=== PATIENT | male | born 1950 | race Caucasian/White ===

== ENCOUNTER 2019-01-13 21:40 | Observation (INO) | payer MEDICARE ==
[~2019-01-13] VITALS: Ht 182.9 cm; Wt 93.4 kg
[2019-01-13] MEDS: ATENOLOL 25 MG TAB PO SCH (21:00)
[2019-01-13 22:33] LABS: BASO # 0.1 10^3/uL (0.0-0.2); BASO % 1.1 % (0.0-1.0); EOS # 0.1 10^3/uL (0.0-0.50); HEMATOCRIT 48.1 % (42.0-52.0); HEMOGLOBIN 16.4 g/dl (13.5-17.5); LYMPH # 2.9 10^3/uL (1.5-4.5); LYMPH % 41.3 % (24.0-44.0); MEAN CORPUSCULAR HGB CONC 34.1 g/dl (32.0-36.5); MEAN CORPUSCULAR VOLUME 88.1 fl (80.0-96.0); MONO # 0.6 10^3/uL (0.0-0.8); MONO % 8.9 % (0.0-5.0); NEUTROPHILS # 3.3 10^3/uL (1.8-7.7); NEUTROPHILS % 46.4 % (36.0-66.0); PLATELET COUNT, AUTOMATED 238 10^3/uL (150-450); RED BLOOD COUNT 5.46 10^6/uL (4.30-6.10); WHITE BLOOD COUNT 7.1 10^3/uL (4.0-10.0)
[2019-01-13 23:07] LABS: ALT/SGPT 18 U/L (12-78); BILIRUBIN,DIRECT 0.2 MG/DL (0.0-0.2); BILIRUBIN,TOTAL 0.5 MG/DL (0.2-1.0); BLOOD UREA NITROGEN 15 MG/DL (7-18); CALCIUM LEVEL 9.1 MG/DL (8.8-10.2); CARBON DIOXIDE LEVEL 25 MEQ/L (21-32); CHLORIDE LEVEL 110 MEQ/L (98-107); CK-MB VALUE MASS 1.8 NG/ML (<3.6); CPK CREATINE PHOSPHOKINASE 135 U/L (39-308); CREATININE FOR GFR 1.48 MG/DL (0.70-1.30); GLOMERULAR FILTRATION RATE 50.5 (>49); GLUCOSE, FASTING 128 MG/DL (70-100); MB/CK RELATIVE INDEX 1.33 (< OR =4); POTASSIUM SERUM 3.7 MEQ/L (3.5-5.1); SODIUM LEVEL 143 MEQ/L (136-145); TROPONIN I < 0.02 NG/ML (< 0.10)
--- NOTE | 2019-01-13 23:37 | REPVR ---
EXAM: CT Head Without Contrast EXAM DATE/TIME: 01/13/2019 10:56 PM CLINICAL HISTORY: 68 years old, male; Visual disturbance; Additional info: Altered mental status TECHNIQUE: Imaging protocol: Computed tomography images of the head without contrast. Radiation optimization: All CT scans at this facility use at least one of these dose optimization techniques: automated exposure control; mA and/or kV adjustment per patient size (includes targeted exams where dose is matched to clinical indication); or iterative reconstruction. COMPARISON: No relevant prior studies available. FINDINGS: Brain: Global cerebral atrophy is consistent with patient's age. Decreased attenuation within the white matter tracts of both cerebral hemispheres is nonspecific but typically seen with small vessel disease/chronic white matter ischemic changes of aging. No intracranial hemorrhage or mass effect. Prominent cisterna magna variant. Ventricles: Unremarkable. No ventriculomegaly. Bones/joints: Unremarkable. No acute fracture. Sinuses: Visualized sinuses are unremarkable. No fluid levels. Mastoid air cells: Visualized mastoid air cells are well aerated. No mastoid effusion. Soft tissues: Unremarkable. IMPRESSION: No acute abnormality. Electronically signed by: Mike Matamoros On 01/13/2019 23:36:44 PM
[2019-01-14] MEDS ORDERED: ASPIRIN 325 MG TAB PO ONE (02:45)
[2019-01-14] MEDS ORDERED: D-10TAB2 PO (03:06)
[2019-01-14] MEDS ORDERED: FENO48TA2 PO (03:06)
[2019-01-14] MEDS ORDERED: SIMV40TA2 PO (03:06)
[2019-01-14] MEDS ORDERED: ATEN25TA PO (03:06)
--- NOTE | 2019-01-14 03:23 | HPEPDOC ---
[facility] Medical History & Physical Date of Admission Jan 14, 2019 Date of Service: Jan 14, 2019 Attending Physician: JULIO SCTOT MD History and Physical TIME OF SERVICE 330AM CHIEF COMPLAINT: Memory lapse HISTORY OF PRESENT ILLNESS: Mr. Gurrola is a 68-year-old male who was brought to the ED by his after having an episode of "ocular migraine that was more "intense than usual ". He reports that his ocular migraines usually involve either the left, the right, both eyes, and manifest with blurring vision the results shortly thereafter. He denies having associated headaches, denies having associated dizziness, and denies having tearing of the eye or stabbing sensation in the eye. When asked to describe what he meant when he sate his ocular headache was "more intense than usual ", he reported having new onset memory loss, and vision loss that was longer than usual. He and his denies noticing changes in his speech. Per discussion with the ED attending, the CT of the head and the EKG were unremarkable REVIEW OF SYSTEMS: 12 point review of systems negative except as listed in HPI PAST MEDICAL /SURGICAL HISTORY: 1. Ocular migraine 2.Chronic hypertension. 3. Dyslipidemia. 4. History of CO SOCIAL HISTORY: Denies alcohol use. Denies tobacco abuse. Denies polysubstance abuse FAMILY HISTORY: Morbid obesity. CVA. Coronary artery disease. Diabetes Hypertension ALLERGIES: Please see below. HOME MEDICATIONS: Please see below. PHYSICAL EXAMINATION: VITAL SIGNS: Temperature 98.7, pulse 90, respiratory rate 18, blood pressure 130/69, pulse oximetry 95% on room air GENERAL APPEARANCE: Well-nourished, well-developed, appears stated age, not in apparent distress HEENT: Normocephalic, atraumatic, mucous members moist and pink, is missing some teeth CARDIOVASCULAR: Heart has regular rate and rhythm, there are no murmurs, rubs or gallops, LUNGS: He is breathing normally and not using accessory muscles. The lungs are clear to auscultation bilaterally on room air ABDOMEN: Abdomen is soft, flat, nontender. Palpation MUSCULOSKELETAL: . Range of motion is intact in all functional in all extremities, EXTREMITIES: there is no lower extremity edema NEUROLOGICAL: . Cranial nerves II-12 grossly intact, speech is not dysarthric, strength is 5 out of 5 in both upper and lower extremities, patellar reflexes are 2+ bilaterally PSYCHIATRIC: Alert and oriented to person, place, but not date, is able to understand and follow commands LABORATORY DATA: CBC is unremarkable History is remarkable for a creatinine of 1.48 and a glucose of 128 IMAGING: CT of the head showed "small vessel disease/chronic white matter ischemic changes of aging" but no acute abnormalties. MICROBIOLOGY: Please see below. ASSESSMENT: Mr. Gurrola is a 68-year-old male with a past medical history of hypertension, dyslipidemia, and chronic coronary artery disease will be admitted for evaluation of memory loss. . PLAN: 1.AMS/ Retrograde Amnesia Cause TBD Plan: admit to F / frequent neurochecks / f/u accucheck, CBC, B12, B1, CMP, ammonia, Mag, Phos, TSH, RPR / f/u MRI of brain w contrast to r/o mass and Carotid US to r/o embolic phenomenon / pending results the day time can determine if Neuro consult is warranted 2. Ocular migraines. manifesting w vision loss Plan: Acetaminophen PRN / out pt vs in pt Neuro consult per day time team 3. Mild renal insufficiency Plan: IV fluids, follow-up BMP in the morning. 4. Chronic hypertension. Plan;continue home meds. 5. Dyslipidemia. Plan: Continue home meds. 6. Chronic CAD Plan: continue home meds DVT px w SCDs Dispo pending clinical course Vital Signs Vital Signs Date Time Temp Pulse Resp B/P (MAP) Pulse Ox O2 Delivery O2 Flow Rate FiO2 01/14/19 00:00 130/69 (89) 01/13/19 23:55 90 95 01/13/19 21:50 98.7 18 Room Air Laboratory Data Labs 24H Laboratory Tests 2 01/13/19 22:20: Immature Granulocyte % (Auto) 0.3, White Blood Count 7.1, Red Blood Count 5.46, Hemoglobin 16.4, Hematocrit 48.1, Mean Corpuscular Volume 88.1, Mean Corpuscular Hemoglobin 30.0, Mean Corpuscular Hemoglobin Concent 34.1, Red Cell Distribution Width 13.1, Platelet Count 238, Neutrophils (%) (Auto) 46.4, Lymphocytes (%) (Auto) 41.3, Monocytes (%) (Auto) 8.9H, Eosinophils (%) (Auto) 2.0, Basophils (%) (Auto) 1.1H, Neutrophils # (Auto) 3.3, Lymphocytes # (Auto) 2.9, Monocytes # (Auto) 0.6, Eosinophils # (Auto) 0.1, Basophils # (Auto) 0.1, Nucleated Red Blood Cells % (auto) 0.0, Anion Gap 8, Glomerular Filtration Rate 50.5, Calcium Level 9.1, Aspartate Amino Transf (AST/SGOT) 18, Alanine Aminotransferase (ALT/SGPT) 18, Alkaline Phosphatase 26L, Total Bilirubin 0.5, Direct Bilirubin 0.2, Total Creatine Kinase 135, Creatine Kinase MB 1.8, Creatine Kinase MB Relative Index 1.33, Troponin I < 0.02, Total Protein 7.0, Albumin 4.0, Albumin/Globulin Ratio 1.33, Thyroid Stimulating Hormone (TSH) 1.990 01/13/19 22:33: Bedside Glucose (Misc Panel) 120H 01/14/19 01:55: Urine Color YELLOW, Urine Appearance CLEAR, Urine pH 6.0, Urine Specific [place] 1.010, Urine Protein NEGATIVE, Urine Glucose (UA) NEGATIVE, Urine Ketones NEGATIVE, Urine Blood 1+H, Urine Nitrite NEGATIVE, Urine Bilirubin NEGATIVE, Urine Urobilinogen 0.2, Urine Leukocyte Esterase NEGATIVE, Urine WBC (Auto) 1, Urine RBC (Auto) 2, Urine Hyaline Casts (Auto) 0, Urine Bacteria (Auto) NEGATIVE, Urine Squamous Epithelial Cells 0, Urine Mucus (Auto) SMALL, Urine Sperm (Auto) CBC/BMP Laboratory Tests 01/13/19 22:20 Red Blood Count 5.46, Mean Corpuscular Volume 88.1, Mean Corpuscular Hemoglobin 30.0, Mean Corpuscular Hemoglobin Concent 34.1, Red Cell Distribution Width 13.1, Neutrophils (%) (Auto) 46.4, Lymphocytes (%) (Auto) 41.3, Monocytes (%) (Auto) 8.9 H, Eosinophils (%) (Auto) 2.0, Basophils (%) (Auto) 1.1 H, Neutrophils # (Auto) 3.3, Lymphocytes # (Auto) 2.9, Monocytes # (Auto) 0.6, Eosinophils # (Auto) 0.1, Basophils # (Auto) 0.1 Home Medications Scheduled Atenolol (Atenolol) 25 Mg Tablet, 25 MG PO QHS Cholecalciferol (Vitamin D3) (Vitamin D3) 1,000 Unit Tablet, 1,000 UNIT PO QHS Fenofibrate Nanocrystallized (Fenofibrate) 48 Mg Tablet, 48 MG PO QHS Simvastatin (Simvastatin) 40 Mg Tablet, 40 MG PO Q2D ALTERNATES BETWEEN 40MG AND 60MG EVERY OTHER DAY Simvastatin (Simvastatin) 40 Mg Tablet, 60 MG PO Q2D ALTERNATES BETWEEN 40MG AND 60MG EVERY OTHER DAY Allergies Coded Allergies: Iodinated Contrast- Oral and IV Dye (Verified Allergy, Unknown, 01/13/19) A-FIB/CHADSVASC A-FIB History Current/History of A-Fib/PAF?: No Current PO Anticoag Therapy: No JULIO SCOTT MD Jan 14, 2019 03:23
[2019-01-14] MEDS ORDERED: ACETAMINOPHEN 500 MG TAB PO PRN (04:30)
[2019-01-14] MEDS: NS 1,000 ML IV SCH ×2 (04:43→12:30)
--- NOTE | 2019-01-14 05:47 | ECGEPIP ---
[facility] - ED Test Date: 2019-01-13 Pat Name: JANEY NUNEZ Department: Room: - Gender: Male [employer]: KCJ : 1950 Requested By: LANA NIETO Order Number: [id number] Reading MD: Lambert Day Measurements Intervals [place] Rate: 92 P: 40 AK: 168 QRS: -36 QRSD: 97 T: 11 QT: 365 QTc: 453 Interpretive Statements SINUS RHYTHM WITH OCCASIONAL VENTRICULAR PREMATURE COMPLEXES PATTERN CONSISTENT WITH PULMONARY DISEASE INCOMPLETE RIGHT BUNDLE BRANCH BLOCK INFERIOR MYOCARDIAL INFARCTION, PROBABLY OLD WITH POSTERIOR EXTENSION NO PRIORS FOR COMPARISON Electronically Signed on 01-14-2019 5:47:48 EDT by Lambert Day
[2019-01-14 07:24] LABS: BASO # 0.1 10^3/uL (0.0-0.2); BASO % 0.9 % (0.0-1.0); EOS # 0.1 10^3/uL (0.0-0.50); EOS % 0.9 % (0.0-3.0); HEMATOCRIT 46.8 % (42.0-52.0); HEMOGLOBIN 15.8 g/dl (13.5-17.5); LYMPH # 1.7 10^3/uL (1.5-4.5); LYMPH % 25.4 % (24.0-44.0); MEAN CORPUSCULAR HEMOGLOBIN 29.9 pg (27.0-33.0); MEAN CORPUSCULAR HGB CONC 33.8 g/dl (32.0-36.5); MEAN CORPUSCULAR VOLUME 88.5 fl (80.0-96.0); MONO # 0.5 10^3/uL (0.0-0.8); NEUTROPHILS # 4.2 10^3/uL (1.8-7.7); NEUTROPHILS % 64.5 % (36.0-66.0); PLATELET COUNT, AUTOMATED 238 10^3/uL (150-450); RED BLOOD COUNT 5.29 10^6/uL (4.30-6.10); WHITE BLOOD COUNT 6.5 10^3/uL (4.0-10.0)
[2019-01-14 07:34] LABS: BLOOD UREA NITROGEN 12 MG/DL (7-18); CALCIUM LEVEL 9.2 MG/DL (8.8-10.2); CARBON DIOXIDE LEVEL 26 MEQ/L (21-32); CHLORIDE LEVEL 111 MEQ/L (98-107); CREATININE FOR GFR 1.39 MG/DL (0.70-1.30); GLOMERULAR FILTRATION RATE 54.3 (>49); GLUCOSE, FASTING 119 MG/DL (70-100); POTASSIUM SERUM 3.7 MEQ/L (3.5-5.1); SODIUM LEVEL 145 MEQ/L (136-145)
[2019-01-14 07:43] VITALS: BP 136/75
[2019-01-14 10:05] LABS: VITAMIN B12 LEVEL 218 PG/ML (247-911)
--- NOTE | 2019-01-14 11:13 | REP ---
CAROTID ULTRASOUND: Real-time ultrasound evaluation and duplex Doppler interrogation of the extracranial carotid vasculature is performed. There is mild plaquing and narrowing in both carotid bulbs extending into the internal and external carotid arteries. Luminal narrowing is less than 50%. There is no evidence of hemodynamically significant stenosis of either internal carotid artery. Normal flow velocities are seen. The vertebral arteries demonstrate normal direction of flow. RIGHT LEFT Peak systolic velocity ICA 57.8 cm/s 59.8 cm/s End diastolic velocity ICA 15.4 cm/s 19.4 cm/s Peak systolic velocity CCA 127.8 cm/s 86.9 cm/s Peak systolic velocity ECA 89.7 cm/s 90.2 cm/s ICA/CCA ratio 0.45 0.74 IMPRESSION: Bilateral luminal narrowing of the internal carotid arteries less than 50%. No evidence of hemodynamically significant stenosis. Electronically Signed by Frantz Andrews MD 01/14/2019 11:04 A
[2019-01-14 14:00] VITALS: BP 161/84
--- NOTE | 2019-01-14 19:15 | REP ---
MR BRAIN WITHOUT CONTRAST: HISTORY: Altered mental status. COMPARISON: CT 01/13/2019 An area of increased signal intensity on diffusion and T2 weighted images is present in the inferomedial left temporal lobe and left occipital lobe. This is decreased in signal intensity on ADC images and is consistent with an acute infarction. Areas of increased signal intensity on T2 weighted images are present in the cerebellum. These represent old lacunar infarctions. Areas of increased signal on T2 weighted images are present in the periventricular and subcortical white matter. This represents small vessel ischemic disease. There is no intraparenchymal hemorrhage, mass or midline shift. The ventricular system and cortical sulci are dilated consistent with mild volume loss. There is no extracerebral collection. The sinuses are clear. IMPRESSION:1. Acute left temporal and occipital lobe infarction. There is no hemorrhage. 2. Old bilateral cerebellar lacunar infarctions. 3. Small vessel ischemic disease. 4. Mild volume loss. Electronically Signed by Noam Silva MD 01/15/2019 08:18 A
[2019-01-14] MEDS ORDERED: SIMVASTATIN 40 MG TAB PO SCH (21:00)
--- NOTE | 2019-01-14 21:03 | REPVR ---
EXAM: MR Angiogram Head Without Contrast, Arteries EXAM DATE/TIME: 01/14/2019 8:25 PM CLINICAL HISTORY: 68 years old, male; Headache and weakness; Additional info: CVA TECHNIQUE: Imaging protocol: MR angiogram head without contrast. Exam focused on the arteries. COMPARISON: MRI-Brain without Contrast 01/14/2019 2:56 PM FINDINGS: Right internal carotid artery: Unremarkable. Intracranial segment is patent with no significant stenosis. No aneurysm. Right anterior cerebral artery: Absent right A1 segment of the anterior cerebral artery. Right middle cerebral artery: Unremarkable. No occlusion or significant stenosis. No aneurysm. Right posterior cerebral artery: Unremarkable. No occlusion or significant stenosis. No aneurysm. Right vertebral artery: Unremarkable. No occlusion or significant stenosis. No aneurysm. Left internal carotid artery: Unremarkable. Intracranial segment is patent with no significant stenosis. No aneurysm. Left anterior cerebral artery: Unremarkable. No occlusion or significant stenosis. No aneurysm. Left middle cerebral artery: Unremarkable. No occlusion or significant stenosis. No aneurysm. Left posterior cerebral artery: Nonvisualized left calcarine branch (P3-P5 segments) of the posterior cerebral artery indicating occlusion. Left vertebral artery: Unremarkable. No occlusion or significant stenosis. No aneurysm. Basilar artery: Unremarkable. No occlusion or significant stenosis. No aneurysm. IMPRESSION: 1. 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 2. Nonvisualized distal left calcarine branch (P3-P5 segments) of the posterior cerebral artery indicating occlusion. Electronically signed by: Gibran Jeong On 01/14/2019 21:03:12 PM
[2019-01-14] MEDS: ASPIRIN 325 MG TAB PO SCH (21:47)
[2019-01-14] MEDS: FENOFIBRATE 48 MG TAB (TRICOR) PO SCH (21:47)
[2019-01-14] MEDS: ATENOLOL 25 MG TAB PO SCH (21:49)
[2019-01-14] MEDS: CYANOCOBALAMIN 1,000 MCG/ML VIAL (J3420) IM SCH (21:50)
[2019-01-14 22:00] VITALS: BP 164/72
[2019-01-15 06:00] VITALS: BP 132/76
[2019-01-15 06:21] LABS: HEMATOCRIT 44.3 % (42.0-52.0); HEMOGLOBIN 15.2 g/dl (13.5-17.5); MEAN CORPUSCULAR HEMOGLOBIN 29.6 pg (27.0-33.0); MEAN CORPUSCULAR HGB CONC 34.3 g/dl (32.0-36.5); MEAN CORPUSCULAR VOLUME 86.4 fl (80.0-96.0); PLATELET COUNT, AUTOMATED 222 10^3/uL (150-450); RED BLOOD COUNT 5.13 10^6/uL (4.30-6.10)
[2019-01-15 06:49] LABS: CHOLESTEROL RISK RATIO 2.607 (<5); CREATININE FOR GFR 1.37 MG/DL (0.70-1.30); GLOMERULAR FILTRATION RATE 55.2 (>49); POTASSIUM SERUM 3.6 MEQ/L (3.5-5.1)
[2019-01-15] MEDS: ASPIRIN 325 MG TAB PO SCH (08:53)
--- NOTE | 2019-01-15 09:02 | CR ---
DATE OF CONSULTATION: 01/14/2019 REFERRING PHYSICIAN: Rajan Harley MD REASON FOR CONSULTATION: Memory lapse and right-sided vision problems. HISTORY OF PRESENT ILLNESS: Jeremias Gurrola is a 68-year-old man with history of ocular migraines. The patient states that he has history of ocular migraines for more than 30 years. His father also has ocular migraines. He states that he came to hospital because he had more intense ocular migraine and other symptoms, as well. He gets ocular migraines anywhere between two and three times a day for 1 week, and then he may not have anything for 6-12 months. He has not had ocular migraine in a year or more. Last night around 9:00 p.m. when he was going inside his [place] from his backyard where he was moving his motor home, he states that he suddenly could not see in both eyes which affected his right eye more than left eye. He also felt increased blind spot and flashes of lights. He felt double vision. He did not feel problems with his speech, imbalance, or dizziness. He went inside his cottage and told his . She decided to drive him to emergency department. On their way, he told his that they should call . Emergency medical services (EMS) brought him to [facility] Emergency Department. He came to Emergency Department by 10:00 p.m. in the ambulance. He denies any headaches with his ocular migraines or yesterday. He states that he repeated himself multiple times when he was in the ambulance. He had memory difficult this morning, especially with short-term memory. It is getting better. His vision and memory have improved in the last 24 hours. DIAGNOSTIC STUDIES: His MRI scan of brain was reviewed and showed a small-medium size medial posterior temporal lobe stroke affecting optic radiations. Carotid ultrasound showed less than 50% bilateral carotid artery stenosis. Electrocardiogram (EKG) and telemetry monitoring showed sinus rhythm. PAST MEDICAL HISTORY: Ocular migraine, hypertension, dyslipidemia, history of myocardial infarction ([place]). SOCIAL HISTORY: He is . He denies smoking, alcohol, or illicit drugs. FAMILY HISTORY: Father with history of ocular migraines. There is no history of diabetes, hypertension, and stroke in the family. REVIEW OF SYSTEMS: All systems were reviewed and found to be noncontributory except as mentioned in history of present illness. HOME MEDICATIONS: - simvastatin and he takes 40 alternating with 60 mg daily - fenofibrate 48 mg by mouth daily - vitamin D3 1000 units by mouth daily - atenolol 25 mg by mouth daily ALLERGIES: INTRAVENOUS AND ORAL CONTRAST DYE. PHYSICAL EXAMINATION: Blood pressure 161/84, pulse 88, respiratory rate 20, temperature 97.3, 96% saturation on room air. Heart: Regular rate and rhythm. Lungs: Clear to auscultation. Abdomen: Soft, nontender, nondistended. No pedal edema. No musculoskeletal abnormalities. No rash. No signs of meningeal irritation. No tremor. The patient is awake, alert, oriented to place, person, and time. Normal speech, comprehension, and repetition. Extraocular muscles are intact. No facial weakness. Tongue and uvula are midline. 5/5 strength in all four extremities. Deep tendon reflexes are 2+ throughout. Normal sensation throughout. No dysmetria or ataxia. Recent memory is slightly affected. The patient asked me the same question two or three times. He was able to correct himself, as well. Distant memory was completely normal. Visual tracey were full to confrontation on my examination at bedside. ASSESSMENT: 1. 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 2. History of ocular migraines. 3. Anterograde amnesia and visual disturbance related to above. 4. Dyslipidemia and hypertension. PLAN: 1. Aspirin 325 mg by mouth daily. 2. MRA brain. 3. We cannot do CT angiography of head and neck due to his CONTRAST ALLERGY. 4. Continue simvastatin 40 mg alternating with 60 mg daily. Will check fasting lipid profile. 5. Blood tests to rule out coagulopathy and vasculopathy. 6. Echocardiogram and continue telemetry monitoring. 7. Follow with our office in 2-4 weeks after hospital discharge. His carotid ultrasound showed less than 50% bilateral carotid stenosis. 8. Vitamin B12 1 mg intramuscular injection daily while he is in the hospital. Can be changed to 1000 mcg by mouth daily at the time of his discharge. His complete blood count (CBC) was within normal limits.
[2019-01-15] MEDS: NS 1,000 ML IV SCH (09:12)
[2019-01-15 12:27] LABS: HEMOGLOBIN A1c 6.1 %
--- NOTE | 2019-01-15 13:36 | IPNPDOC ---
Subjective Date Seen The patient was seen on 01/15/19. Subjective Chief Complaint/HPI Patient seen and examined at the bedside. Reports that his visual disturbance and memory has significantly improved compared to yesterday. Denies any new focal neurological deficits. Objective Physical Examination General Exam: Positive: Alert, Cooperative, No Acute Distress Eye Exam: Positive: PERRLA, Conjunctiva & lids normal, EOMI; Negative: Sclera icteric, Ptosis ENT Exam: Positive: Atraumatic, Mucous membr. moist/pink Neck Exam: Negative: JVD Chest Exam: Positive: Clear to auscultation, Normal air movement Heart Exam: Positive: Rate Normal, Normal S1, Normal S2 Abdomen Exam: Positive: Soft; Negative: Tenderness Extremity Exam: Negative: Tenderness, Swelling Neuro Exam: Positive: Normal Speech, Strength at 5/5 X4 ext, Normal Tone, Sensation Intact, Cranial Nerves 3-12 NL Psych Exam: Positive: Mental status NL, Mood NL, Oriented x 3 Assessment /Plan Plan/VTE VTE Prophylaxis Ordered?: Yes Plan Left Posterior Medial Temporal Lobe CVA Symptoms of Anterograde amnesia with visual disturbance has improved MRI Brain notable for Acute left temporal and occipital lobe infarction MRA Brain notable for Absent right A1 segment of the anterior cerebral artery and Nonvisualized distal left calcarine branch (P3-P5 segments) of the posterior cerebral artery indicating occlusion. U/S Carotids with Less than 50% stenosis noted 2D ECHO pending Neuro input appreciated; Cont ASA 325mg, Statin We will cont to monitor the patient on Telemetry Chronic Kidney Disease Stage III Serum Cr at baseline HTN Cont atenolol Dyslipidemia Cont Statin, Fenofibrate Pre-Diabetes HgbA1c noted to be 6.1%---Dietary and lifestyle modifications will be discussed DVT Prophylaxis OOB, Ambulation encouraged Dispo--pending continued clinical improvement, 2D ECHO. Anticipate D/C in the AM. VS, I&O, 24H, Fishbone Vital Signs/I&O Vital Signs Date Time Temp Pulse Resp B/P (MAP) Pulse Ox O2 Delivery O2 Flow Rate FiO2 01/15/19 06:00 97.0 16 19 132/76 (94) 99 01/13/19 21:50 Room Air I&O- Last 24 Hours up to 6 AM 01/15/19 06:00 Intake Total 2560 ml Output Total 200 ml Balance 2360 ml Laboratory Data 24H LABS Laboratory Tests 2 01/15/19 05:37: Nucleated Red Blood Cells % (auto) 0.0, Anion Gap 6L, Glomerular Filtration Rate 55.2, Calcium Level 9.0, Triglycerides Level 113, LDL Cholesterol 67, Total Cholesterol 146, Non-HDL Cholesterol (LDL + VLDL) 90, Total HDL Cholesterol 56, Cholesterol/HDL Ratio 2.607 01/15/19 11:28: Estimated Mean Plasma Glucose 128H, Hemoglobin A1c 6.1 CBC/BMP Laboratory Tests 01/15/19 05:37 Red Blood Count 5.13, Mean Corpuscular Volume 86.4, Mean Corpuscular Hemoglobin 29.6, Mean Corpuscular Hemoglobin Concent 34.3, Red Cell Distribution Width 13.2 MARY MAXWELL MD Jan 15, 2019 13:36
[2019-01-15 14:00] VITALS: BP 134/81
[2019-01-15] MEDS: CYANOCOBALAMIN 1,000 MCG/ML VIAL (J3420) IM SCH (15:29)
[2019-01-15] MEDS ORDERED: CYANOCOBALAMIN 1,000 MCG/ML VIAL (J3420) IM SCH (19:00)
[2019-01-15] MEDS ORDERED: SIMVASTATIN 20 MG TAB PO SCH (21:00)
[2019-01-15 21:07] VITALS: BP 121/71
[2019-01-15] MEDS: FENOFIBRATE 48 MG TAB (TRICOR) PO SCH (21:07)
[2019-01-15] MEDS: ATENOLOL 25 MG TAB PO SCH (21:07)
[2019-01-15 22:00] VITALS: BP 127/71
[2019-01-16] MEDS: NS 1,000 ML IV SCH (01:48)
[2019-01-16 06:00] VITALS: BP 140/73
[2019-01-16 08:46] LABS: CALCIUM LEVEL 9.1 MG/DL (8.8-10.2); CREATININE FOR GFR 1.34 MG/DL (0.70-1.30); GLOMERULAR FILTRATION RATE 56.6 (>49); POTASSIUM SERUM 3.6 MEQ/L (3.5-5.1)
[2019-01-16] MEDS ORDERED: ASPI-1 PO (09:14)
[2019-01-16] MEDS ORDERED: B-122500 PO (09:14)
[2019-01-16] MEDS: ASPIRIN 325 MG TAB PO SCH (09:38)
[2019-01-16] MEDS: CYANOCOBALAMIN 1,000 MCG/ML VIAL (J3420) IM SCH (09:38)
--- NOTE | 2019-01-16 14:56 | DS.PDOC ---
Discharge Summary General Date of Admission Jan 14, 2019 at 02:52 Date of Discharge 01/16/19 Specialist/Consultants Involve Dr. Peres of Neurology Discharge Summary PROCEDURES PERFORMED DURING STAY: None. ADMITTING/DISCHARGE DIAGNOSES: Left Posterior Medial Temporal Lobe CVA Chronic kidney disease stage III Prediabetes COMPLICATIONS/CHIEF COMPLAINT: Altered Mental Status. HISTORY OF PRESENT ILLNESS: . 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 However, the patient states that he had an episode where he suddenly could not see out of both eyes, which affected his right eye more than left. He stated that he had an increased amount of blind spots and flashes of light which felt like double vision. In addition, the patient's stated that the patient was also having trouble remembering things that happened in the short-term. In the ER, a CT scan of the head revealed no acute findings. The patient was admitted to the hospitalist service. A consult was placed to neurology for further evaluation and management. Left Posterior Medial Temporal Lobe CVA Symptoms of Anterograde amnesia with visual disturbance has improved since admission MRI Brain notable for Acute left temporal and occipital lobe infarction MRA Brain notable for Absent right A1 segment of the anterior cerebral artery and Nonvisualized distal left calcarine branch (P3-P5 segments) of the posterior cerebral artery indicating occlusion. U/S Carotids with Less than 50% stenosis noted 2D ECHO pending--- patient counseled on following up with the results of this with his PCP or neurology appointment within 1-2 weeks Neuro input appreciated; Cont ASA 325mg, Statin Chronic Kidney Disease Stage III Serum Cr at baseline HTN Cont atenolol Dyslipidemia Cont Statin, Fenofibrate Pre-Diabetes HgbA1c noted to be 6.1%---Dietary and lifestyle modifications discussed at length with the patient DISCHARGE MEDICATIONS: Please see below. ALLERGIES: Please see below. PHYSICAL EXAMINATION ON DISCHARGE: VITAL SIGNS: Please see below. General Exam: Positive: Alert, Cooperative, No Acute Distress Eye Exam: Positive: PERRLA, Conjunctiva & lids normal, EOMI; Negative: Sclera icteric, Ptosis ENT Exam: Positive: Atraumatic, Mucous membr. moist/pink Neck Exam: Negative: JVD Chest Exam: Positive: Clear to auscultation, Normal air movement Heart Exam: Positive: Rate Normal, Normal S1, Normal S2 Abdomen Exam: Positive: Soft; Negative: Tenderness Extremity Exam: Negative: Tenderness, Swelling Neuro Exam: Positive: Normal Speech, Strength at 5/5 X4 ext, Normal Tone, Sensation Intact, Cranial Nerves 3-12 NL Psych Exam: Positive: Mental status NL, Mood NL, Oriented x 3 LABORATORY DATA: Please see below. IMAGING: EXAM: CT Head Without Contrast EXAM DATE/TIME: 01/13/2019 10:56 PM CLINICAL HISTORY: 68 years old, male; Visual disturbance; Additional info: Altered mental status TECHNIQUE: Imaging protocol: Computed tomography images of the head without contrast. Radiation optimization: All CT scans at this facility use at least one of these dose optimization techniques: automated exposure control; mA and/or kV adjustment per patient size (includes targeted exams where dose is matched to clinical indication); or iterative reconstruction. COMPARISON: No relevant prior studies available. FINDINGS: Brain: Global cerebral atrophy is consistent with patient's age. Decreased attenuation within the white matter tracts of both cerebral hemispheres is nonspecific but typically seen with small vessel disease/chronic white matter ischemic changes of aging. No intracranial hemorrhage or mass effect. Prominent cisterna magna variant. Ventricles: Unremarkable. No ventriculomegaly. Bones/joints: Unremarkable. No acute fracture. Sinuses: Visualized sinuses are unremarkable. No fluid levels. Mastoid air cells: Visualized mastoid air cells are well aerated. No mastoid effusion. Soft tissues: Unremarkable. IMPRESSION: No acute abnormality. CAROTID ULTRASOUND: Real-time ultrasound evaluation and duplex Doppler interrogation of the extracranial carotid vasculature is performed. There is mild plaquing and narrowing in both carotid bulbs extending into the internal and external carotid arteries. Luminal narrowing is less than 50%. There is no evidence of hemodynamically significant stenosis of either internal carotid artery. Normal flow velocities are seen. The vertebral arteries demonstrate normal direction of flow. RIGHT LEFT Peak systolic velocity ICA 57.8 cm/s 59.8 cm/s End diastolic velocity ICA 15.4 cm/s 19.4 cm/s Peak systolic velocity CCA 127.8 cm/s 86.9 cm/s Peak systolic velocity ECA 89.7 cm/s 90.2 cm/s ICA/CCA ratio 0.45 0.74 IMPRESSION: Bilateral luminal narrowing of the internal carotid arteries less than 50%. No evidence of hemodynamically significant stenosis. MR BRAIN WITHOUT CONTRAST: HISTORY: Altered mental status. COMPARISON: CT 01/13/2019 An area of increased signal intensity on diffusion and T2 weighted images is present in the inferomedial left temporal lobe and left occipital lobe. This is decreased in signal intensity on ADC images and is consistent with an acute infarction. Areas of increased signal intensity on T2 weighted images are present in the cerebellum. These represent old lacunar infarctions. Areas of increased signal on T2 weighted images are present in the periventricular and subcortical white matter. This represents small vessel ischemic disease. There is no intraparenchymal hemorrhage, mass or midline shift. The ventricular system and cortical sulci are dilated consistent with mild volume loss. There is no extracerebral collection. The sinuses are clear. IMPRESSION:1. Acute left temporal and occipital lobe infarction. There is no hemorrhage. 2. Old bilateral cerebellar lacunar infarctions. 3. Small vessel ischemic disease. 4. Mild volume loss. EXAM: MR Angiogram Head Without Contrast, Arteries EXAM DATE/TIME: 01/14/2019 8:25 PM CLINICAL HISTORY: 68 years old, male; Headache and weakness; Additional info: CVA TECHNIQUE: Imaging protocol: MR angiogram head without contrast. Exam focused on the arteries. COMPARISON: MRI-Brain without Contrast 01/14/2019 2:56 PM FINDINGS: Right internal carotid artery: Unremarkable. Intracranial segment is patent with no significant stenosis. No aneurysm. Right anterior cerebral artery: Absent right A1 segment of the anterior cerebral artery. Right middle cerebral artery: Unremarkable. No occlusion or significant stenosis. No aneurysm. Right posterior cerebral artery: Unremarkable. No occlusion or significant stenosis. No aneurysm. Right vertebral artery: Unremarkable. No occlusion or significant stenosis. No aneurysm. Left internal carotid artery: Unremarkable. Intracranial segment is patent with no significant stenosis. No aneurysm. Left anterior cerebral artery: Unremarkable. No occlusion or significant stenosis. No aneurysm. Left middle cerebral artery: Unremarkable. No occlusion or significant stenosis. No aneurysm. Left posterior cerebral artery: Nonvisualized left calcarine branch (P3-P5 segments) of the posterior cerebral artery indicating occlusion. Left vertebral artery: Unremarkable. No occlusion or significant stenosis. No aneurysm. Basilar artery: Unremarkable. No occlusion or significant stenosis. No aneurysm. IMPRESSION: 1. 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 2. Nonvisualized distal left calcarine branch (P3-P5 segments) of the posterior cerebral artery indicating occlusion. PROGNOSIS: Fair ACTIVITY: As tolerated. DIET: 2 g low sodium, low-fat, low-cholesterol diet DISCHARGE PLAN: DISPOSITION: 01 Home, Self-Care. DISCHARGE INSTRUCTIONS: Follow-up with primary care physician within 7 days for 2-D echocardiogram results. Follow-up with neurology within 2-4 weeks. Return to the ER for any acute emergencies. DISCHARGE CONDITION: Stable. TIME SPENT ON DISCHARGE: Greater than 30 minutes. Vital Signs/I&Os Vital Signs Date Time Temp Pulse Resp B/P (MAP) Pulse Ox O2 Delivery O2 Flow Rate FiO2 01/16/19 06:00 98.0 69 18 140/73 (95) 98 01/13/19 21:50 Room Air I&O- Last 24 Hours up to 6 AM 01/16/19 05:59 Intake Total 2260 ml Output Total 125 ml Balance 2135 ml Laboratory Data Labs 24H Laboratory Tests 2 01/16/19 08:00: Anion Gap 5L, Glomerular Filtration Rate 56.6, Blood Urea Nitrogen 10, Creatinine 1.34H, Sodium Level 142, Potassium Level 3.6, Chloride Level 109H, Carbon Dioxide Level 28, Calcium Level 9.1 CBC/BMP Laboratory Tests 01/16/19 08:00 Calcium Level 9.1 Discharge Medications Scheduled Aspirin (Aspirin) 325 Mg Tablet, 325 MG PO DAILY Atenolol (Atenolol) 25 Mg Tablet, 25 MG PO QHS, (Reported) Cholecalciferol (Vitamin D3) (Vitamin D3) 1,000 Unit Tablet, 1,000 UNIT PO QHS, (Reported) Cyanocobalamin (Vitamin B-12) (Vitamin B12) 2,500 Mcg Tablet, 1 TAB PO DAILY Fenofibrate Nanocrystallized (Fenofibrate) 48 Mg Tablet, 48 MG PO QHS, (Reported) Simvastatin (Simvastatin) 40 Mg Tablet, 40 MG PO Q2D, (Reported) ALTERNATES BETWEEN 40MG AND 60MG EVERY OTHER NIGHT Simvastatin (Simvastatin) 40 Mg Tablet, 60 MG PO Q2D, (Reported) ALTERNATES BETWEEN 40MG AND 60MG EVERY OTHER NIGHT Allergies Coded Allergies: Iodinated Contrast- Oral and IV Dye (Verified Allergy, Unknown, 01/13/19) MARY MAXWELL MD Jan 16, 2019 14:56
--- NOTE | 2019-01-17 14:58 | ECHO ---
DATE OF SERVICE: 01/15/2019 REFERRING PROVIDER: Dr. Cyndi Peres PATIENT LOCATION: Room 4236 REASON FOR ECHOCARDIOGRAM: Cerebrovascular accident (CVA). 2D MEASUREMENTS: IVS: 0.8 cm LV: 3.9 cm LVPW: 0.8 cm LA: 3.6 cm Aorta: 3.3 cm IVC: 2.0 cm DOPPLER MEASUREMENTS: Peak velocity across the aortic valve: 0.95 m/s Peak velocity across the LVOT: 0.58 m/s Mitral E: 0.45 Mitral A: 0.49 with a ratio of 0.9 Maximum tricuspid valve velocity: 2.3 m/s 2D COMMENTS: 1. Normal left ventricular size, wall thickness, and normal global left ventricular systolic function. The estimated left ventricular systolic ejection fraction is 60-65%. 2. Normal left atrium. The right atrium and the right ventricle appear to be mildly enlarged in limited views. 3. The atrial septum appeared to be normal without evidence of defect or shunt. 4. Normal aortic root. 5. Trace pericardial effusion was noted. No evidence of cardiac tamponade. 6. The aortic valve, the mitral valve, the tricuspid valve appear to be normal. The proximal pulmonary artery branches and the pulmonic valve were not well visualized. 7. The inferior vena cava is borderline enlarged. DOPPLER: No significant valvular abnormalities detected, but trace to mild tricuspid regurgitation. The calculated pulmonary artery systolic pressure varies between 30 to 40 mmHg. Abnormal relaxation pattern was noted across the mitral valve leaflets as well as the mitral valve annulus consistent with features of grade 1 left ventricular diastolic dysfunction. IMPRESSION: 1. Normal global left ventricular systolic function. There were some features of grade 1 left ventricular diastolic dysfunction manifested by abnormal relaxation. 2. Trace to mild tricuspid regurgitation with mild pulmonary hypertension. 3. Trace pericardial effusion, no evidence of cardiac tamponade. 4. The right heart chambers appear to be mildly enlarged in limited views, but were not well visualized. 5. The pulmonic valve and proximal pulmonary artery branches were not well visualized. 6. This study was technically limited due to poor acoustic window secondary to body habitus. [facility]
== END 2019-01-16 10:07 | disposition home or self-care (01) ==
LOC: M ED 21:40 → M ED INP 21:43 → UNDOADMOB 01-14 02:52 → M ED INP 01-14 02:52 → M MSPAV 01-14 07:06 → UNDODISOB 01-16 10:07
PROVIDERS: ADMIT Internal Medicine; ATTEND Internal Medicine
DX: I69.314 Frontal lobe and executive function deficit following cerebral infarction (principal); N18.3 Chronic kidney disease, stage 3 (moderate); R73.03 Prediabetes; I10 Essential (primary) hypertension; E78.49 Other hyperlipidemia; Z79.82 Long term (current) use of aspirin; Z79.899 Other long term (current) drug therapy; H53.9 Unspecified visual disturbance; R51 Headache; D64.9 Anemia, unspecified; G31.9 Degenerative disease of nervous system, unspecified; I65.23 Occlusion and stenosis of bilateral carotid arteries
CPT/HCPCS: 36415; 70450; 70544; 70551; 80048; 80061; 80076; 81001; 82140; 82550; 82553; 82607; 83036; 83735; 84425; 84443; 84484; 85025; 85027; 86780; 93005; 93041; 93306; 93880; 94760; 96361; 96372; 99285; G0378; J3420

== ENCOUNTER → 2019-12-03 | Outpatient (REF) | payer MEDICARE ==
[~2019-12-03] MED LIST: ASPI-1 PO; ATEN25TA PO; B-122500 PO; D-10TAB2 PO; FENO48TA7 PO; SIMV40TA20 PO
[2019-12-03 15:04] LABS: HEMATOCRIT 54.2 % (42.0-52.0); HEMOGLOBIN 17.7 g/dl (13.5-17.5); MEAN CORPUSCULAR HEMOGLOBIN 29.2 pg (27.0-33.0); MEAN CORPUSCULAR HGB CONC 32.7 g/dl (32.0-36.5); MEAN CORPUSCULAR VOLUME 89.3 fl (80.0-96.0); PLATELET COUNT, AUTOMATED 260 10^3/uL (150-450); RED BLOOD COUNT 6.07 10^6/uL (4.30-6.10); WHITE BLOOD COUNT 7.7 10^3/uL (4.0-10.0)
[2019-12-03 15:39] LABS: ALBUMIN 4.5 GM/DL (3.2-5.2); BILIRUBIN,TOTAL 0.9 MG/DL (0.2-1.0); CALCIUM LEVEL 9.9 MG/DL (8.8-10.2); CHOLESTEROL RISK RATIO 2.397 (<5); CREATININE FOR GFR 1.31 MG/DL (0.70-1.30); FREE T4 1.13 NG/DL (0.76-1.46); GLOMERULAR FILTRATION RATE 57.9 (>49); POTASSIUM SERUM 4.4 MEQ/L (3.5-5.1); THYROID STIMULATING HORMONE 1.76 uIU/ML (0.358-3.740)
== END ==
LOC: M SFHCPLAZ 12:39
PROVIDERS: ATTEND Physician Assistant
DX: E78.5 Hyperlipidemia, unspecified (principal); Z13.29 Encounter for screening for other suspected endocrine disorder; Z12.5 Encounter for screening for malignant neoplasm of prostate
CPT/HCPCS: 36415; 80053; 80061; 84439; 84443; 85027; G0103

== ENCOUNTER → 2020-04-01 | Outpatient (REF) | payer MEDICARE | LOC: M LAB REF 13:45 | PROVIDERS: ATTEND Physician Assistant | DX: L82.1 Other seborrheic keratosis (principal) | CPT/HCPCS: 11102; 88305; G0463 ==

== ENCOUNTER → 2020-05-24 | Outpatient (CLI) | payer MEDICARE ==
--- NOTE | 2020-05-24 10:47 | REP ---
INDICATION: CEREBRAL INFARCTION COMPARISON: 01/14/2019. TECHNIQUE: Real-time ultrasound evaluation and duplex Doppler interrogation of the extracranial carotid vasculature is performed. FINDINGS: There is mild plaquing and narrowing in both carotid bulbs extending into the internal and external carotid arteries. Luminal narrowing is less than 50%. There is no evidence of hemodynamically significant stenosis of either internal carotid artery. Normal flow velocities are seen. The vertebral arteries demonstrate normal direction of flow. RIGHT LEFT Peak systolic velocity ICA 63.1 cm/s 76.5 cm/s End diastolic velocity ICA 21.9 cm/s 29.3 cm/s Peak systolic velocity CCA 96.4 cm/s 105.0cm/s Peak systolic velocity ECA 91.3 cm/s 92.8 cm/s ICA/CCA ratio 0.7 0.7 IMPRESSION: Bilateral luminal narrowing of the internal carotid arteries less than 50%. No evidence of hemodynamically significant stenosis. <Electronically signed by Frantz Andrews > 05/24/20 [id number]
== END ==
LOC: M RAD 09:06
PROVIDERS: ATTEND Psychiatry & Neurology Neurology
DX: I63.9 Cerebral infarction, unspecified (principal)

== ENCOUNTER → 2020-06-01 | Outpatient (CLI) | payer MEDICARE ==
--- NOTE | 2020-06-01 19:23 | REPVR ---
PROCEDURE INFORMATION: Exam: MR Head Without Contrast Exam date and time: 06/01/2020 5:31 PM Age: 70 years old Clinical indication: Condition or disease; Patient HX: HX CVA; Additional info: Cerebral infarction TECHNIQUE: Imaging protocol: MR of the head without contrast. COMPARISON: MRI-Brain without Contrast 01/14/2019 2:56 PM FINDINGS: Brain: No acute infarct. Milad cisterna magna. Cerebral ventricles: Normal. No ventriculomegaly. Bones/joints: Unremarkable. Paranasal sinuses: Normal as visualized. No acute sinusitis. Mastoid air cells: Normal as visualized. No mastoid effusion. Orbits: Unremarkable. Soft tissues: Unremarkable. Other findings: No hemorrhage. IMPRESSION: No acute intracranial abnormality. Electronically signed by: Cody Murphy On 06/01/2020 19:23:17 PM
--- NOTE | 2020-06-01 19:25 | REPVR ---
PROCEDURE INFORMATION: Exam: MR Angiogram Head Without Contrast, Arteries Exam date and time: 06/01/2020 5:30 PM Age: 70 years old Clinical indication: Other: CVA; Additional info: Cerebral infarction TECHNIQUE: Imaging protocol: MR angiogram head without contrast. Exam focused on the arteries. 3D rendering (Not supervised by radiologist): MIP and/or 3D reconstructed images were created by the technologist. COMPARISON: MRA BRAIN W/O CONTRAST 01/14/2019 8:04 PM FINDINGS: ANTERIOR CIRCULATION: Right internal carotid artery: Intracranial segment is patent with no significant stenosis. No aneurysm. Right middle cerebral artery: No occlusion or significant stenosis. No aneurysm. Right anterior cerebral artery: No occlusion or significant stenosis. No aneurysm. Left internal carotid artery: Intracranial segment is patent with no significant stenosis. No aneurysm. Left middle cerebral artery: No occlusion or significant stenosis. No aneurysm. Left anterior cerebral artery: No occlusion or significant stenosis. No aneurysm. POSTERIOR CIRCULATION: Right vertebral artery: No occlusion or significant stenosis. No aneurysm. Left vertebral artery: No occlusion or significant stenosis. No aneurysm. Basilar artery: No occlusion or significant stenosis. No aneurysm. Right posterior cerebral artery: No occlusion or significant stenosis. No aneurysm. Left posterior cerebral artery: No occlusion or significant stenosis. No aneurysm. IMPRESSION: No stenosis or occlusion. Electronically signed by: Cody Murphy On 06/01/2020 19:26:04 PM
== END ==
LOC: M RAD 16:07
PROVIDERS: ATTEND Psychiatry & Neurology Neurology
DX: I63.9 Cerebral infarction, unspecified (principal)

== ENCOUNTER 2020-09-23 09:27 | Emergency (ER) | payer MEDICARE ==
[~2020-09-23] VITALS: Ht 185.4 cm; Wt 90.8 kg
[2020-09-23 10:31] LABS: BASO # 0.1 10^3/uL (0.0-0.2); BASO % 0.8 % (0.0-1.0); EOS # 0.1 10^3/uL (0.0-0.5); EOS % 2.3 % (0.0-3.0); HEMOGLOBIN 16.6 g/dl (13.5-17.5); LYMPH # 1.9 10^3/uL (1.5-5.0); LYMPH % 30.7 % (24.0-44.0); MEAN CORPUSCULAR HEMOGLOBIN 29.8 pg (27.0-33.0); MEAN CORPUSCULAR HGB CONC 33.9 g/dl (32.0-36.5); MONO # 0.6 10^3/uL (0.0-0.8); MONO % 10.1 % (2.0-8.0); NEUTROPHILS # 3.4 10^3/uL (1.5-8.5); NEUTROPHILS % 55.8 % (36.0-66.0); PLATELET COUNT, AUTOMATED 218 10^3/uL (150-450); RED BLOOD COUNT 5.57 10^6/uL (4.30-6.10); WHITE BLOOD COUNT 6.1 10^3/uL (4.0-10.0)
[2020-09-23 10:41] LABS: INR 0.99; PROTHROMBIN TIME 13.3 SECONDS (12.5-14.3)
[2020-09-23 10:42] LABS: PARTIAL THROMBOPLASTIN TIME 31.5 SECONDS (24.2-38.5)
--- NOTE | 2020-09-23 10:45 | REP ---
INDICATION: palpitations. COMPARISON: No comparison chest x-ray. TECHNIQUE: Portable sitting AP chest x-ray. Two views presented.. FINDINGS: The lungs are well inflated and free of infiltrate. Pleural angles are sharp. Heart size is normal. Pulmonary vasculature is not increased. EKG monitoring electrodes are seen. IMPRESSION: No active disease. <Electronically signed by Sal Rodriguez > 09/23/20 [id number]
[2020-09-23 11:13] LABS: ALBUMIN 4.1 GM/DL (3.2-5.2); ALT/SGPT 21 U/L (12-78); BILIRUBIN,DIRECT 0.3 MG/DL (0.0-0.2); BILIRUBIN,TOTAL 0.8 MG/DL (0.2-1.0); BLOOD UREA NITROGEN 22 MG/DL (7-18); CALCIUM LEVEL 10.2 MG/DL (8.8-10.2); CARBON DIOXIDE LEVEL 29 MEQ/L (21-32); CHLORIDE LEVEL 106 MEQ/L (98-107); CK-MB VALUE MASS 1.4 NG/ML (<3.6); CPK CREATINE PHOSPHOKINASE 62 U/L (39-308); CREATININE FOR GFR 1.34 MG/DL (0.70-1.30); GLOMERULAR FILTRATION RATE 56.3 (>49); GLUCOSE, FASTING 103 MG/DL (70-100); LIPASE 129 U/L (73-393); MAGNESIUM LEVEL 1.9 MG/DL (1.8-2.4); MB/CK RELATIVE INDEX 2.26 (< OR =4); NT-PRO BNP 502 PG/ML (<125); POTASSIUM SERUM 4.1 MEQ/L (3.5-5.1); SODIUM LEVEL 140 MEQ/L (136-145); TOTAL PROTEIN 6.9 GM/DL (6.4-8.2); TROPONIN I < 0.02 NG/ML (< 0.10)
[2020-09-23 14:00] VITALS: BP 119/72
--- NOTE | 2020-09-23 19:54 | ECGEPIP ---
[facility] - ED Test Date: 2020-09-23 Pat Name: JANEY NUNEZ Department: Room: - Gender: Male [employer]: PHAN : [id number] Requested By: JEFFREY Zacarias Order Number: [id number] Reading MD: Irma Kearns Measurements Intervals [place] Rate: 79 P: 63 MT: 156 QRS: -5 QRSD: 88 T: 36 QT: 388 QTc: 444 Interpretive Statements Sinus rhythm with frequent premature ventricular complexes Possible Left atrial enlargement Inferior infarct , age undetermined NSTTW abnormalities Electronically Signed on 09-23-2020 19:55:11 EDT by Irma Kearns
== END 2020-09-23 14:26 | disposition home or self-care (01) ==
LOC: M ED 09:27
DX: R00.2 Palpitations (principal); I49.3 Ventricular premature depolarization; I10 Essential (primary) hypertension; E78.5 Hyperlipidemia, unspecified; N18.30 Chronic kidney disease, stage 3 unspecified; Z79.82 Long term (current) use of aspirin; Z79.899 Other long term (current) drug therapy

== ENCOUNTER 2020-12-25 09:13 | Emergency (ER) | payer MEDICARE ==
[~2020-12-25] VITALS: Ht 185.4 cm; Wt 90.1 kg
[2020-12-25 11:49] VITALS: BP 111/80
== END 2020-12-25 11:50 | disposition home or self-care (01) ==
LOC: M ED 09:13
DX: R31.9 Hematuria, unspecified (principal); Z91.041 Radiographic dye allergy status

== ENCOUNTER → 2021-01-20 | Outpatient (CLI) | payer MEDICARE ==
[~2021-01-20] MED LIST changes: +ROSU40TA4 PO
== END ==
LOC: M LABSMTC 12:33
PROVIDERS: ATTEND Anesthesiology
DX: Z01.812 Encounter for preprocedural laboratory examination (principal); Z20.822 Contact with and (suspected) exposure to COVID-19

== ENCOUNTER → 2021-01-23 | Outpatient (CLI) | payer MEDICARE ==
[2021-01-23 15:28] LABS: HEMOGLOBIN 17.2 g/dl (13.5-17.5); MEAN CORPUSCULAR HEMOGLOBIN 29.6 pg (27.0-33.0); MEAN CORPUSCULAR HGB CONC 33.7 g/dl (32.0-36.5); MEAN CORPUSCULAR VOLUME 87.8 fl (80.0-96.0); PLATELET COUNT, AUTOMATED 240 10^3/uL (150-450); RED BLOOD COUNT 5.81 10^6/uL (4.30-6.10); WHITE BLOOD COUNT 7.5 10^3/uL (4.0-10.0)
[2021-01-23 15:29] LABS: APPEARANCE, URINE CLEAR (CLEAR); BACTERIA, URINE AUTO NEGATIVE (NEGATIVE); BILIRUBIN, URINE AUTO NEGATIVE (NEGATIVE); BLOOD, URINE BLOOD NEGATIVE (NEGATIVE); COLOR, URINE YELLOW (YELLOW); GLUCOSE, URINE (UA) AUTO NEGATIVE (NEGATIVE); KETONE, URINE AUTO NEGATIVE (NEGATIVE); LEUKOCYTE ESTERASE, URINE AUTO NEGATIVE (NEGATIVE); NITRITE, URINE AUTO NEGATIVE (NEGATIVE); PROTEIN, URINE AUTO NEGATIVE (NEGATIVE); RBC, URINE AUTO 1 /HPF (0-3); SPECIFIC GRAVITY URINE AUTO 1.019 (1.002-1.035); SQUAMOUS EPITHELIAL CELL UR AU 0 /HPF (0-6); UROBILINOGEN, URINE AUTO 0.2 mg/dL (0.0-2.0); WBC, URINE AUTO 2 /HPF (0-3)
[2021-01-23 15:58] LABS: ALBUMIN 4.3 GM/DL (3.2-5.2); ALT/SGPT 23 U/L (12-78); BLOOD UREA NITROGEN 20 MG/DL (7-18); CALCIUM LEVEL 9.3 MG/DL (8.8-10.2); CARBON DIOXIDE LEVEL 28 MEQ/L (21-32); CHLORIDE LEVEL 108 MEQ/L (98-107); CHOLESTEROL LEVEL 158 MG/DL (<200); CREATININE FOR GFR 1.25 MG/DL (0.70-1.30); GLOMERULAR FILTRATION RATE > 60.0 (>49); GLUCOSE, FASTING 103 MG/DL (70-100); HDL CHOLESTEROL 65 MG/DL (>40); LDL CHOLESTEROL 76 MG/DL (<100); NON-HDL-C 93 MG/DL; POTASSIUM SERUM 4.8 MEQ/L (3.5-5.1); SODIUM LEVEL 141 MEQ/L (136-145); TOTAL PROTEIN 7.6 GM/DL (6.4-8.2); TRIGLYCERIDES LEVEL 87 MG/DL (<150)
== END ==
LOC: M PLALAB 11:40
PROVIDERS: ATTEND Physician Assistant
DX: R31.29 Other microscopic hematuria (principal); I11.9 Hypertensive heart disease without heart failure; E78.5 Hyperlipidemia, unspecified; N18.31 Chronic kidney disease, stage 3a; Z12.5 Encounter for screening for malignant neoplasm of prostate
CPT/HCPCS: 36415; 80053; 80061; 81001; 85027; G0103

== ENCOUNTER 2021-01-25 11:50 | Day surgery (SDC) | payer MEDICARE ==
[~2021-01-25] VITALS: Ht 185.4 cm; Wt 88.7 kg
[~2021-01-25 11:50] MED LIST changes: +NS 1,000 ML IV ONE
[2021-01-25] MEDS ORDERED: MIDAZOLAM INJ 2MG/2ML VIAL (J2250 PER 1MG) As Ordered ONE ×2 (13:01→13:02)
[2021-01-25] MEDS ORDERED: LIDOCAINE VISCOUS 2% SOLN 15ML UDC As Ordered ONE (13:02)
[2021-01-25] MEDS ORDERED: MIDAZOLAM INJ 2MG/2ML VIAL (J2250 PER 1MG) IV PRN (13:55)
[2021-01-25 14:00] VITALS: BP 132/74
[2021-01-25] MEDS ORDERED: LIDOCAINE VISCOUS 2% SOLN 15ML UDC MT ONE (14:00)
--- NOTE | 2021-01-25 14:11 | ECHO ---
ECHOCARDIOGRAM DATE OF PROCEDURE: 01/25/2021 Age: Gender: Height: Weight: REFERRING PHYSICIAN: PREPROCEDURE DIAGNOSIS: Cryptogenic stroke, atrial septal defect. POSTPROCEDURE DIAGNOSIS: Patent foramen ovale. FINDINGS: Patent foramen ovale. See additional findings in conclusions below. PROCEDURE PERFORMED: Transesophageal echocardiogram with saline bubble study. PROCEDURE PERFORMED BY: Dr. Gregg Roman. VAULT CASHIER: None. INTRAVENOUS SEDATION: Midazolam 4 mg IV total. COMPLICATIONS: None. PROCEDURE DESCRIPTION: The patient received viscous lidocaine to gargle. He received a total of 4 mg midazolam IV. Esophageal intubation was accomplished without difficulty using a [place] 3-dimensional transesophageal echocardiogram probe. Rhythm was sinus. The left and right ventricles appeared normal in size and systolic function. A 5 mm width patent foramen ovale was present, and some color flow could be seen within the patent foramen ovale. Saline bubble study was performed using 1 mL of the patient's own blood mixed with 8 mm of normal saline and 1 mL of air. This was agitated back and forth between two 10 mL syringes via a 3-way stopclock. The bubbles were injected via an antecubital vein in the right upper extremity. During the injection, patient performed Valsalva maneuver. Upon appearance of bubbles in the right atrium, the patient released the Valsalva, and a moderate amount of bubbles were seen crossing from the right atrium to the left atrium via the patent foramen ovale. Aortic valve was 3-cuspid and was structurally and functionally normal. No aortic regurgitation. Mitral leaflets were structurally and functionally normal with trace mitral regurgitation. Pulmonic valve was poorly seen but appeared unremarkable. Tricuspid leaflets were structurally normal. No tricuspid regurgitation. Imaging in the pulmonary veins was difficult. No mass or thrombi were seen within the atria or their appendages. No pericardial effusion. The distal aortic arch and descending thoracic aorta showed up to mild areas of patchy atheroma. CONCLUSIONS: 1. A 5 mm width patent foramen ovale with positive saline bubble shunting from right atrium to left atrium, both at rest and with Valsalva maneuver release. 2. Normal left and right ventricle size and systolic function. 3. Mild atheroma involving the distal aortic arch and descending thoracic aorta.
== END 2021-01-25 14:15 | disposition home or self-care (01) ==
LOC: M OPP 11:50
PROVIDERS: ATTEND Internal Medicine Cardiovascular Disease
DX: Q21.1 Atrial septal defect (principal); K63.9 Disease of intestine, unspecified; Z79.899 Other long term (current) drug therapy; Z91.041 Radiographic dye allergy status
CPT/HCPCS: 93312; 93320; 93325; J2250

== ENCOUNTER → 2021-02-23 | Outpatient (CLI) | payer MEDICARE ==
[~2021-02-23] MED LIST changes: -NS 1,000 ML IV ONE
[2021-02-23 13:47] LABS: HEMATOCRIT 50.1 % (42.0-52.0); HEMOGLOBIN 16.5 g/dl (13.5-17.5); MEAN CORPUSCULAR HEMOGLOBIN 28.8 pg (27.0-33.0); MEAN CORPUSCULAR HGB CONC 32.9 g/dl (32.0-36.5); MEAN CORPUSCULAR VOLUME 87.4 fl (80.0-96.0); PLATELET COUNT, AUTOMATED 278 10^3/uL (150-450); RED BLOOD COUNT 5.73 10^6/uL (4.30-6.10); WHITE BLOOD COUNT 6.3 10^3/uL (4.0-10.0)
[2021-02-23 14:21] LABS: ALBUMIN 3.8 GM/DL (3.2-5.2); ALT/SGPT 17 U/L (12-78); BILIRUBIN,TOTAL 0.8 MG/DL (0.2-1.0); BLOOD UREA NITROGEN 13 MG/DL (7-18); C REACTIVE PROTEIN QUANTITATIV 5.28 MG/DL (0.00-0.30); CALCIUM LEVEL 9.9 MG/DL (8.8-10.2); CARBON DIOXIDE LEVEL 31 MEQ/L (21-32); CHLORIDE LEVEL 104 MEQ/L (98-107); CREATININE FOR GFR 1.17 MG/DL (0.70-1.30); GLOMERULAR FILTRATION RATE > 60.0 (>42); GLUCOSE, FASTING 104 MG/DL (70-100); LIPASE 86 U/L (73-393); POTASSIUM SERUM 4.1 MEQ/L (3.5-5.1); SODIUM LEVEL 143 MEQ/L (136-145)
[2021-02-23 14:29] LABS: ERYTHROCYTE SEDIMENTATION RATE 7 mm/hr (0-20)
== END ==
LOC: M PLALAB 09:49
PROVIDERS: ATTEND Physician Assistant
DX: R19.7 Diarrhea, unspecified (principal)

== ENCOUNTER → 2021-02-27 | Outpatient (CLI) | payer MEDICARE | LOC: M LABSMTC 11:39 | PROVIDERS: ATTEND Internal Medicine Cardiovascular Disease | DX: Z20.822 Contact with and (suspected) exposure to COVID-19 (principal) ==

== ENCOUNTER → 2021-03-14 | Outpatient (REF) | payer MEDICARE | LOC: M SFHCPLAZ 13:00 | PROVIDERS: ATTEND Physician Assistant Medical | DX: R31.29 Other microscopic hematuria (principal) ==

== ENCOUNTER → 2021-04-10 | Outpatient (REF) | payer MEDICARE ==
[~2021-04-10] MED LIST changes: -FENO48TA7 PO; +FENO48TA8 PO
== END ==
LOC: M SFHCPLAZ 19:20
PROVIDERS: ATTEND Physician Assistant Medical
DX: R31.29 Other microscopic hematuria (principal)
CPT/HCPCS: 17000; 17003; 88108; G0463

== ENCOUNTER → 2021-04-19 | Outpatient (CLI) | payer MEDICARE ==
--- NOTE | 2021-04-19 14:25 | REP ---
INDICATION: HEMATURIA. COMPARISON: None. TECHNIQUE: Noncontrast images through abdomen and pelvis with coronal and sagittal reconstructions. FINDINGS: CT abdomen: AP and lateral senior master scheduler images the suggest a pectus excavatum chest wall configuration. Lung bases show only minimal curvilinear fibrotic change in the lateral aspect of both lower lung zones. No effusion or acute infiltrate. The heart has a left ventricular configuration with pectus excavatum narrowing the midline AP diameter of the chest. No pericardial thickening or effusion. No hiatal hernia. The liver, gallbladder, pancreas, adrenal glands and spleen were all unremarkable. Abdominal portion of the colon shows scattered diverticula without signs of diverticulitis or colitis. Appendix is seen and normal. Small bowel loops were grossly unremarkable. Abdominal aorta shows atherosclerotic calcification but without aneurysm. No periaortic, other retroperitoneal or mesenteric pathologic sized lymph adenopathy. Appears to be some scarring laterally in the interpolar region of the right kidney but not the left. There is an 8.5 mm posteromedial interpolar left renal focus which is homogeneously hyperdense most suggestive of a hyperdense cyst. No renal, ureteral or bladder stone. There is no hydronephrosis, hydroureter or displacement of the ureter on either side. The bone windows show grade 2 anterior wedge compression deformity at L1 without paraspinal hematoma to suggest acuity. The visualized lower ribs were also intact. No spondylolysis or spondylolisthesis but some facet arthritis lower lumbar spine. CT pelvis: The sacrum, SI joints, pelvis and hips show some degenerative changes but no destructive lesions or fractures. Bladder only partially filled wall thickness therefore difficult to administrative law judge. There is diverticulosis distal left colon and sigmoid without diverticulitis or colitis. The prostate is enlarged and elevates the bladder base from the pelvic floor as well as indenting it. It measures about 6 x 5.3 x 5.1 cm. No pelvic lymphadenopathy. There is omental fat distending the left inguinal canal without bowel herniation. Right-sided appears to have some postoperative changes. Multiple pelvic phleboliths seen IMPRESSION: 1. Thickening of the bladder wall with bladder only partially filled. This may reflect underfilling or result of bladder outlet obstruction. There is no renal, ureteral or bladder stone. No hydronephrosis or hydroureter. 2. Noncontrast kidney D images show only 18.5 mm hyperdense homogeneous nodule posteriorly and medially in the interpolar left kidney most likely a hyperdense left cyst no other significant findings in either kidney. Old scar laterally interpolar right kidney 3. The other upper abdominal solid organs,, gallbladder and stomach unremarkable. 4. Wedge compression deformity of L1, no findings to suggest an acute compression fracture. 5. Diverticulosis colon and sigmoid without signs of diverticulitis. Small bowel loops unremarkable. No significant adenopathy. <Electronically signed by Kendrick Lindsey > 04/19/21 0243
== END ==
LOC: M RAD 13:41
PROVIDERS: ATTEND Physician Assistant Medical
DX: K57.30 Diverticulosis of large intestine without perforation or abscess without bleeding (principal); R31.29 Other microscopic hematuria; I70.0 Atherosclerosis of aorta; M46.96 Unspecified inflammatory spondylopathy, lumbar region

== ENCOUNTER → 2021-06-01 | Outpatient (REF) | payer MEDICARE ==
[2021-06-01 13:27] LABS: APPEARANCE, URINE CLEAR (CLEAR); BACTERIA, URINE AUTO NEGATIVE (NEGATIVE); BILIRUBIN, URINE AUTO NEGATIVE (NEGATIVE); BLOOD, URINE BLOOD NEGATIVE (NEGATIVE); COLOR, URINE YELLOW (YELLOW); GLUCOSE, URINE (UA) AUTO NEGATIVE (NEGATIVE); KETONE, URINE AUTO NEGATIVE (NEGATIVE); LEUKOCYTE ESTERASE, URINE AUTO NEGATIVE (NEGATIVE); NITRITE, URINE AUTO NEGATIVE (NEGATIVE); PROTEIN, URINE AUTO NEGATIVE (NEGATIVE); RBC, URINE AUTO 0 /HPF (0-3); SPECIFIC GRAVITY URINE AUTO 1.018 (1.002-1.035); SQUAMOUS EPITHELIAL CELL UR AU 0 /HPF (0-6); UROBILINOGEN, URINE AUTO 0.2 mg/dL (0.0-2.0); WBC, URINE AUTO 0 /HPF (0-3)
== END ==
LOC: M SMT 13:00
PROVIDERS: ATTEND Urology
DX: E78.2 Mixed hyperlipidemia (principal); I10 Essential (primary) hypertension; R35.1 Nocturia; E55.9 Vitamin D deficiency, unspecified; R31.0 Gross hematuria
CPT/HCPCS: 81001; 87086; 88108; G0463

== ENCOUNTER → 2021-07-14 | Outpatient (CLI) | payer MEDICARE ==
[2021-07-14 15:43] LABS: ALBUMIN 4.3 GM/DL (3.2-5.2); BILIRUBIN,TOTAL 0.6 MG/DL (0.2-1.0); CALCIUM LEVEL 9.8 MG/DL (8.8-10.2); CHOLESTEROL RISK RATIO 2.333 (<5); CREATININE FOR GFR 1.31 MG/DL (0.70-1.30); GLOMERULAR FILTRATION RATE 57.6 (>42); POTASSIUM SERUM 4.7 MEQ/L (3.5-5.1); TOTAL PROTEIN 7.3 GM/DL (6.4-8.2)
== END ==
LOC: M PLALAB 12:00
PROVIDERS: ATTEND Physician Assistant Medical
DX: E78.5 Hyperlipidemia, unspecified (principal)

== ENCOUNTER → 2022-01-12 | Outpatient (CLI) | payer MEDICARE ==
[2022-01-12 17:50] LABS: APPEARANCE, URINE CLEAR (CLEAR); BACTERIA, URINE AUTO NEGATIVE (NEGATIVE); BILIRUBIN, URINE AUTO NEGATIVE (NEGATIVE); BLOOD, URINE BLOOD NEGATIVE (NEGATIVE); COLOR, URINE YELLOW (YELLOW); GLUCOSE, URINE (UA) AUTO NEGATIVE (NEGATIVE); KETONE, URINE AUTO NEGATIVE (NEGATIVE); LEUKOCYTE ESTERASE, URINE AUTO NEGATIVE (NEGATIVE); NITRITE, URINE AUTO NEGATIVE (NEGATIVE); PROTEIN, URINE AUTO NEGATIVE (NEGATIVE); RBC, URINE AUTO 0 /HPF (0-3); SPECIFIC GRAVITY URINE AUTO 1.014 (1.002-1.035); SQUAMOUS EPITHELIAL CELL UR AU 0 /HPF (0-6); UROBILINOGEN, URINE AUTO 0.2 mg/dL (0.0-2.0); WBC, URINE AUTO 0 /HPF (0-3)
== END ==
LOC: M PLALAB 13:48
PROVIDERS: ATTEND Urology
DX: R31.29 Other microscopic hematuria (principal); Z80.42 Family history of malignant neoplasm of prostate
CPT/HCPCS: 36415; 81001; 88108; G0103

== ENCOUNTER → 2022-08-20 | Outpatient (CLI) | payer MEDICARE ==
[2022-08-20 14:16] LABS: FREE T4 1.17 NG/DL (0.89-1.76)
[2022-08-20 14:17] LABS: THYROID STIMULATING HORMONE 2.983 uIU/ML (0.55-4.78)
[2022-08-20 14:18] LABS: ALBUMIN 4.6 G/DL (3.2-5.2); ALKALINE PHOSPHATASE 30 U/L (46-116); ALT/SGPT 17 U/L (7.0-40); AST/SGOT 18 U/L (<34); BILIRUBIN,TOTAL 0.7 MG/DL (0.3-1.2); BLOOD UREA NITROGEN 20 MG/DL (9-23); CALCIUM LEVEL 9.7 MG/DL (8.3-10.6); CARBON DIOXIDE LEVEL 28 MMOL/L (20-31); CHLORIDE LEVEL 106 MMOL/L (98-107); CHOLESTEROL LEVEL 167 MG/DL (<200); CHOLESTEROL RISK RATIO 2.34 (<5); CREATININE FOR GFR 1.09 MG/DL (0.70-1.30); GLOMERULAR FILTRATION RATE > 60.0 (>42); GLUCOSE, FASTING 106 MG/DL (74-106); HDL CHOLESTEROL 71.2 MG/DL (>40); LDL CHOLESTEROL 78.8 MG/DL (<100); NON-HDL-C 95.8 MG/DL; POTASSIUM SERUM 4.6 MMOL/L (3.5-5.1); SODIUM LEVEL 142 MMOL/L (136-145); TOTAL PROTEIN 7.4 G/DL (5.7-8.2); TRIGLYCERIDES LEVEL 85 MG/DL (<150)
[2022-08-20 14:27] LABS: BASO # 0.1 10^3/uL (0.0-0.2); BASO % 1.1 % (0.0-1.0); EOS # 0.2 10^3/uL (0.0-0.5); EOS % 2.4 % (0.0-3.0); HEMOGLOBIN 17.3 g/dl (13.5-17.5); LYMPH % 30.4 % (24.0-44.0); MEAN CORPUSCULAR HEMOGLOBIN 29.1 pg (27.0-33.0); MEAN CORPUSCULAR VOLUME 90.9 fl (80.0-96.0); MONO # 0.6 10^3/uL (0.0-0.8); MONO % 9.7 % (2.0-8.0); NEUTROPHILS # 3.7 10^3/uL (1.5-8.5); NEUTROPHILS % 56.1 % (36.0-66.0); PLATELET COUNT, AUTOMATED 242 10^3/uL (150-450); RED BLOOD COUNT 5.94 10^6/uL (4.30-6.10); WHITE BLOOD COUNT 6.6 10^3/uL (4.0-10.0)
[2022-08-21 23:11] LABS: PSA % FREE 23.3 % (.); PSA FREE 1.05 ng/mL; PSA TOTAL 4.5 ng/mL (0.0-4.0)
== END ==
LOC: M PLALAB 09:41
PROVIDERS: ATTEND Physician Assistant Medical
DX: E78.5 Hyperlipidemia, unspecified (principal); F41.9 Anxiety disorder, unspecified; I11.9 Hypertensive heart disease without heart failure; R97.20 Elevated prostate specific antigen [PSA]

== ENCOUNTER → 2023-02-25 | Outpatient (CLI) | payer MEDICARE ==
[2023-02-25 14:58] LABS: ALBUMIN 4.2 G/DL (3.2-5.2); ALKALINE PHOSPHATASE 28 U/L (46-116); ALT/SGPT 18 U/L (7.0-40); AST/SGOT 19 U/L (<34); BILIRUBIN,TOTAL 0.9 MG/DL (0.3-1.2); BLOOD UREA NITROGEN 19 MG/DL (9-23); CARBON DIOXIDE LEVEL 31 MMOL/L (20-31); CHLORIDE LEVEL 106 MMOL/L (98-107); GLOMERULAR FILTRATION RATE > 60.0 (>42); GLUCOSE, FASTING 104 MG/DL (74-106); POTASSIUM SERUM 4.2 MMOL/L (3.5-5.1); SODIUM LEVEL 144 MMOL/L (136-145)
[2023-02-25 15:00] LABS: CPK CREATINE PHOSPHOKINASE 106 U/L (46-171)
== END ==
LOC: M PLALAB 09:32
PROVIDERS: ATTEND Physician Assistant Medical
DX: E78.5 Hyperlipidemia, unspecified (principal)

== ENCOUNTER → 2023-04-16 | Outpatient (CLI) | payer MEDICARE ==
[2023-04-18 21:07] LABS: PSA TOTAL 3.7 ng/mL (0.0-4.0)
== END ==
LOC: M PLALAB 11:28
PROVIDERS: ATTEND Urology
DX: N40.0 Benign prostatic hyperplasia without lower urinary tract symptoms (principal); Z80.42 Family history of malignant neoplasm of prostate; R97.20 Elevated prostate specific antigen [PSA]

== ENCOUNTER → 2023-10-14 | Outpatient (CLI) | payer MEDICARE ==
[~2023-10-14] MED LIST changes: -ROSU40TA4 PO; +ROSU40TA63 PO
[2023-10-14 17:18] LABS: APPEARANCE, URINE CLEAR (CLEAR); BACTERIA, URINE AUTO NEGATIVE (NEGATIVE); BILIRUBIN, URINE AUTO NEGATIVE (NEGATIVE); BLOOD, URINE BLOOD NEGATIVE (NEGATIVE); COLOR, URINE YELLOW (YELLOW); GLUCOSE, URINE (UA) AUTO NEGATIVE (NEGATIVE); KETONE, URINE AUTO NEGATIVE (NEGATIVE); LEUKOCYTE ESTERASE, URINE AUTO NEGATIVE (NEGATIVE); NITRITE, URINE AUTO NEGATIVE (NEGATIVE); PROTEIN, URINE AUTO NEGATIVE (NEGATIVE); RBC, URINE AUTO 0 /HPF (0-3); SPECIFIC GRAVITY URINE AUTO 1.023 (1.002-1.035); SQUAMOUS EPITHELIAL CELL UR AU 0 /HPF (0-6); UROBILINOGEN, URINE AUTO 0.2 mg/dL (0.0-2.0); WBC, URINE AUTO 0 /HPF (0-3)
[2023-10-14 17:22] LABS: BASO # 0.1 10^3/uL (0.0-0.2); BASO % 0.9 % (0.0-1.0); EOS # 0.1 10^3/uL (0.0-0.5); EOS % 1.6 % (0.0-3.0); HEMATOCRIT 51.5 % (42.0-52.0); HEMOGLOBIN 17.5 g/dl (13.5-17.5); LYMPH # 2.5 10^3/uL (1.5-5.0); LYMPH % 32.7 % (24.0-44.0); MEAN CORPUSCULAR HEMOGLOBIN 29.9 pg (27.0-33.0); MEAN CORPUSCULAR VOLUME 87.9 fl (80.0-96.0); MONO # 0.8 10^3/uL (0.0-0.8); MONO % 10.5 % (2.0-8.0); NEUTROPHILS # 4.1 10^3/uL (1.5-8.5); PLATELET COUNT, AUTOMATED 260 10^3/uL (150-450); RED BLOOD COUNT 5.86 10^6/uL (4.30-6.10); WHITE BLOOD COUNT 7.7 10^3/uL (4.0-10.0)
[2023-10-14 17:38] LABS: ALBUMIN 4.6 G/DL (3.2-5.2); BILIRUBIN,TOTAL 0.9 MG/DL (0.3-1.2); CALCIUM LEVEL 10.2 MG/DL (8.3-10.6); CHOLESTEROL RISK RATIO 2.7 (<5); CREATININE FOR GFR 1.32 MG/DL (0.70-1.30); GLOMERULAR FILTRATION RATE 56.8 (>42); HDL CHOLESTEROL 59.2 MG/DL (>40); LDL CHOLESTEROL 79.6 MG/DL (<100); NON-HDL-C 100.8 MG/DL; POTASSIUM SERUM 4.6 MMOL/L (3.5-5.1); TOTAL PROTEIN 7.5 G/DL (5.7-8.2)
== END ==
LOC: M PLALAB 15:25
PROVIDERS: ATTEND Physician Assistant Medical
DX: E78.5 Hyperlipidemia, unspecified (principal); N18.31 Chronic kidney disease, stage 3a; I11.9 Hypertensive heart disease without heart failure; R31.29 Other microscopic hematuria

== ENCOUNTER → 2024-04-08 | Outpatient (REF) | payer MEDICARE ==
[~2024-04-08] MED LIST changes: -ROSU40TA63 PO; +ROSU40TA81 PO
== END ==
LOC: M LAB REF 09:47
PROVIDERS: ATTEND Surgery
DX: D23.5 Other benign neoplasm of skin of trunk (principal)

== ENCOUNTER → 2024-04-13 | Outpatient (CLI) | payer MEDICARE ==
[2024-04-13 15:13] LABS: BASO # 0.1 10^3/uL (0.0-0.2); BASO % 1.1 % (0.0-1.0); EOS # 0.2 10^3/uL (0.0-0.5); EOS % 2.8 % (0.0-3.0); HEMATOCRIT 51.7 % (42.0-52.0); HEMOGLOBIN 16.9 g/dl (13.5-17.5); LYMPH # 2.2 10^3/uL (1.5-5.0); LYMPH % 36.4 % (24.0-44.0); MEAN CORPUSCULAR HGB CONC 32.7 g/dl (32.0-36.5); MEAN CORPUSCULAR VOLUME 88.8 fl (80.0-96.0); MONO # 0.6 10^3/uL (0.0-0.8); MONO % 10.3 % (2.0-8.0); NEUTROPHILS % 49.1 % (36.0-66.0); PLATELET COUNT, AUTOMATED 254 10^3/uL (150-450); RED BLOOD COUNT 5.82 10^6/uL (4.30-6.10); WHITE BLOOD COUNT 6.1 10^3/uL (4.0-10.0)
[2024-04-13 15:18] LABS: ALBUMIN 4.1 G/DL (3.2-5.2); ALKALINE PHOSPHATASE 31 U/L (40-129); ALT/SGPT 18 U/L (7.0-40); AST/SGOT 11 U/L (<34); BILIRUBIN,TOTAL 0.7 MG/DL (0.3-1.2); BLOOD UREA NITROGEN 17 MG/DL (9-23); CALCIUM LEVEL 10.4 MG/DL (8.3-10.6); CARBON DIOXIDE LEVEL 31 MMOL/L (20-31); CHLORIDE LEVEL 105 MMOL/L (98-107); CREATININE FOR GFR 1.24 MG/DL (0.70-1.30); GLOMERULAR FILTRATION RATE > 60.0 (>42); GLUCOSE, FASTING 101 MG/DL (74-106); POTASSIUM SERUM 4.5 MMOL/L (3.5-5.1); PSA SCREENING 3.04 NG/ML (< 4.00); SODIUM LEVEL 139 MMOL/L (136-145); TOTAL PROTEIN 7.7 G/DL (5.7-8.2)
[2024-04-13 15:20] LABS: FREE T4 1.16 NG/DL (0.89-1.76)
[2024-04-13 15:21] LABS: THYROID STIMULATING HORMONE 2.509 uIU/ML (0.55-4.78)
== END ==
LOC: M PLALAB 12:42
PROVIDERS: ATTEND Physician Assistant Medical
DX: I11.9 Hypertensive heart disease without heart failure (principal); R97.20 Elevated prostate specific antigen [PSA]; F41.0 Panic disorder [episodic paroxysmal anxiety]; E78.5 Hyperlipidemia, unspecified; N18.31 Chronic kidney disease, stage 3a; Z12.5 Encounter for screening for malignant neoplasm of prostate
CPT/HCPCS: 36415; 80053; 84439; 84443; 85025; G0103

== ENCOUNTER → 2024-09-25 | Outpatient (CLI) | payer MEDICARE | LOC: M RAD 12:07 | PROVIDERS: ATTEND Physician Assistant Medical | DX: G45.9 Transient cerebral ischemic attack, unspecified (principal); R41.3 Other amnesia; R25.1 Tremor, unspecified; Z82.0 Family history of epilepsy and other diseases of the nervous system ==

== ENCOUNTER → 2025-05-28 | Outpatient (CLI) | payer MEDICARE ==
[2025-05-28 14:31] LABS: APPEARANCE, URINE CLEAR (CLEAR); BACTERIA, URINE AUTO NEGATIVE (NEGATIVE); BILIRUBIN, URINE AUTO NEGATIVE (NEGATIVE); BLOOD, URINE BLOOD NEGATIVE (NEGATIVE); GLUCOSE, URINE (UA) AUTO NEGATIVE (NEGATIVE); KETONE, URINE AUTO NEGATIVE (NEGATIVE); LEUKOCYTE ESTERASE, URINE AUTO NEGATIVE (NEGATIVE); MUCUS, URINE SMALL (NEGATIVE); NITRITE, URINE AUTO NEGATIVE (NEGATIVE); PROTEIN, URINE AUTO NEGATIVE (NEGATIVE); RBC, URINE AUTO 1 /HPF (0-3); SPECIFIC GRAVITY URINE AUTO 1.020 (1.002-1.035); SQUAMOUS EPITHELIAL CELL UR AU 0 /HPF (0-6); UROBILINOGEN, URINE AUTO 0.2 mg/dL (0.0-2.0); WBC, URINE AUTO 1 /HPF (0-3)
== END ==
LOC: M PLALAB 10:20
PROVIDERS: ATTEND Urology
DX: Z12.5 Encounter for screening for malignant neoplasm of prostate (principal); R31.9 Hematuria, unspecified

== ENCOUNTER → 2025-06-02 | Outpatient (CLI) | payer MEDICARE ==
[2025-06-02 12:48] LABS: BASO # 0.1 10^3/uL (0.0-0.2); BASO % 1.0 % (0.0-1.0); EOS # 0.2 10^3/uL (0.0-0.5); EOS % 1.8 % (0.0-3.0); LYMPH # 2.5 10^3/uL (1.5-5.0); LYMPH % 27.3 % (24.0-44.0); MONO # 0.9 10^3/uL (0.0-0.8); MONO % 9.2 % (2.0-8.0); NEUTROPHILS # 5.6 10^3/uL (1.5-8.5); NEUTROPHILS % 60.5 % (36.0-66.0); PLATELET COUNT, AUTOMATED 280 10^3/uL (150-450)
[2025-06-02 13:18] LABS: ALT/SGPT 19.0 U/L (7.0-40); AST/SGOT 24.0 U/L (<34); CALCIUM LEVEL 9.8 MG/DL (8.3-10.6); CARBON DIOXIDE LEVEL 32.0 MMOL/L (20-31); CHLORIDE LEVEL 102.0 MMOL/L (98-107); CHOLESTEROL LEVEL 166.0 MG/DL (<200); CHOLESTEROL RISK RATIO 2.47 (<5); CREATININE FOR GFR 1.22 MG/DL (0.70-1.30); GLOMERULAR FILTRATION RATE 62.2 (>42); LDL CHOLESTEROL 70.9 MG/DL (<100); NON-HDL-C 98.9 MG/DL; POTASSIUM SERUM 4.8 MMOL/L (3.5-5.1); SODIUM LEVEL 143.0 MMOL/L (136-145); TRIGLYCERIDES LEVEL 140.0 MG/DL (<150)
[2025-06-02 13:19] LABS: FREE T4 1.26 NG/DL (0.89-1.76)
== END ==
LOC: M PLALAB 09:48
PROVIDERS: ATTEND Physician Assistant Medical
DX: I11.9 Hypertensive heart disease without heart failure (principal); N18.31 Chronic kidney disease, stage 3a; R31.29 Other microscopic hematuria; E78.5 Hyperlipidemia, unspecified; G45.9 Transient cerebral ischemic attack, unspecified; R41.3 Other amnesia; F41.9 Anxiety disorder, unspecified